=== PATIENT | male | born 1945 | race Caucasian/White ===

== ENCOUNTER 2018-03-19 09:05 | Inpatient (IN) | payer MEDICARE, BC ==
[~2018-03-19] VITALS: Ht 183 cm; Wt 154.4 kg
[2018-03-19] VITALS (15 sets, daily range): BP systolic 109–135; BP diastolic 39–84; PULSE 54–69; TEMP 97.2–98.8
[2018-03-19] MEDS ORDERED: BETAPACE 120MG120 MG PO (09:39)
[2018-03-19] MEDS ORDERED: SINEMET 25/101 UDTAB PO (09:51)
[2018-03-19 09:54] LABS: HEMATOCRIT 49.3 % (42.0-52.0); HEMOGLOBIN 15.9 g/dl (13.5-18.0); MEAN CELL VOLUME 95 fl (80.0-100.0); MEAN CORPUSCULAR HEMOGLOBIN 31 pg (27.0-31.0); MEAN CORPUSCULAR HGB CONC 32 g/dl (33.0-37.0); MEAN PLATELET VOLUME 9.8 fl (7.4-10.4); PLATELET COUNT 250 K/mm3 (130-400); REDCELL DISTRIBUTION WIDTH-CV 14.9 % (11.5-14.5)
[2018-03-19] MEDS ORDERED: COZAAR 50MG50 MG/TAB PO (10:00)
[2018-03-19] MEDS ORDERED: PROZAC40 MG PO (10:00)
[2018-03-19] MEDS ORDERED: ELIQUIS 5MG PO (10:02)
[2018-03-19] MEDS ORDERED: XANAX .25M0.25 MG/TA PO (10:03)
[2018-03-19] MEDS ORDERED: ATROVENT I0.2 MG/1 M IH (10:04)
[2018-03-19 10:06] LABS: CALCIUM 9.2 mg/dL (8.4-10.2); CREATININE, serum 0.71 mg/dL (0.66-1.25); POTASSIUM 4.7 mmol/L (3.4-5.0)
[2018-03-19 10:46] LABS: INR 1.1 (0.8-3.0); PROTHROMBIN TIME 12.2 SECONDS (9.7-12.8)
[2018-03-20 03:10] VITALS: BP 119/44; PULSE 58; TEMP 98.5
[2018-03-20 07:55] VITALS: BP 127/44; BP 129/44; BP 150/63; PULSE 59; TEMP 97.3
[2018-03-20 12:11] VITALS: BP 124/59; PULSE 58; TEMP 98.2
[2018-03-20] MEDS ORDERED: NITROSTAT0.4 MG/TAB SL (15:39)
[2018-03-20] MEDS ORDERED: LIPITOR 40MG TA40 MG PO (15:39)
[2018-03-20] MEDS ORDERED: BRILINTA90 MG PO (15:39)
[2018-03-20] MEDS ORDERED: ASPIRIN E.C. 8181 MG PO (15:40)
== END 2018-03-20 16:10 | disposition home or self-care (01) | DRG 247 ==
LOC: COL.CAR 09:05 → MEDICAL 13:00 → COL.CAR 13:48 → MEDICAL 03-20 16:10
PROVIDERS: Internal Medicine Cardiovascular Disease
PROC: 027034Z Dilation of Coronary Artery, One Artery with Drug-eluting Intraluminal Device, Percutaneous Approach (ICD-10-PCS; principal; 2018-03-19)
PROC: 4A023N7 Measurement of Cardiac Sampling and Pressure, Left Heart, Percutaneous Approach (ICD-10-PCS; 2018-03-19)
PROC: B3101ZZ Fluoroscopy of Thoracic Aorta using Low Osmolar Contrast (ICD-10-PCS; 2018-03-19)
PROC: B2111ZZ Fluoroscopy of Multiple Coronary Arteries using Low Osmolar Contrast (ICD-10-PCS; 2018-03-19)
DX: I25.10 Atherosclerotic heart disease of native coronary artery without angina pectoris (principal); Z68.41 Body mass index [BMI] 40.0-44.9, adult; I48.91 Unspecified atrial fibrillation; Z79.01 Long term (current) use of anticoagulants; I10 Essential (primary) hypertension; E78.5 Hyperlipidemia, unspecified; E66.01 Morbid (severe) obesity due to excess calories; I25.2 Old myocardial infarction; E11.9 Type 2 diabetes mellitus without complications; G47.33 Obstructive sleep apnea (adult) (pediatric); J44.9 Chronic obstructive pulmonary disease, unspecified; Z87.891 Personal history of nicotine dependence
CPT/HCPCS: C1725; C1769; C1874; C1887; C9600; J1644; J2250; J3010; Q9967